=== PATIENT | female | born 1965 | race Caucasian/White ===

== ENCOUNTER 2022-12-10 16:58 | Emergency (ER) | payer MEDICAID, OTHER ==
[~2022-12-10] VITALS: Ht 182.8 cm; Wt 58.9 kg
--- NOTE | 2022-12-10 17:23 | ED General ---
General Chief Complaint: Neurological Problems Stated Complaint: SEIZURE Nursing Triage Note: PT ARRIVED VIA [employer] [facility] WITH CC OF SEIZURE X3 TODAY. PT STATES THAT SHE HAS NOT TAKEN HER MEDICATION FOR 8 MONTHS AND HAS A NONVOLUNTARY SHAKE X1 YEAR. Source of Information: Patient, Family (daughter) Exam Limitations: No Limitations (ARIN STEELE MD) History of Present Illness Date Seen by Provider: Dec 10, 2022 Time Seen by Provider: 17:09 Initial Comments Patient is a 57-year-old female who presents to the emergency room by ambulance, chief complaint of "seizures" today. She had been at [facility] in [facility] for an initial intake appointment. She tells me that she has a history of mental health disorder/depression as well as seizures. She has been off of her medications for at least 8 months since she moved from [place]. Her daughter is with her and states that they have been trying to get records from [place] but have not been able to do that. Daughter relates that the patient had 3 seizures today. She has "staring spells" she also has seizures where she "pushes people away" seizures where she "grabs at things". Patient states she has "alltypes" of seizures. Daughter states that she has about 5 to 10 minutes of confusion after these episodes. No recent illnesses. The patient denies any fevers or chills. No productive cough. No shortness of breath. No nausea or vomiting. She has had normal appetite. She denies burning with urination or diarrhea. She does smoke cigarettes. She denies street drug use including marijuana but the daughter states that the patient has been around marijuana so it "may be in her system". Patient is demonstrating tremoring in her upper extremities and ataxic truncal movements. I asked the patient if she had a movement disorder and she states yes this is normal for her. She is able to hold still when I am looking in her ears and in her mouth and auscultating her lungs and heart. Timing/Duration: 24 Hours Associated Systoms: Denies Symptoms (ARIN STEELE MD) Allergies and Home Medications Patient Home Medication List Home Medication List Reviewed: Yes (ARIN STEELE MD) Review of Systems Review of Systems Constitutional: see HPI EENTM: no symptoms reported Respiratory: no symptoms reported Cardiovascular: no symptoms reported Gastrointestinal: no symptoms reported Genitourinary: no symptoms reported Musculoskeletal: no symptoms reported Skin: no symptoms reported Psychiatric/Neurological: Seizure, Tremors (ARIN STEELE MD) All Other Systems Reviewed Negative Unless Noted: Yes (ARIN STEELE MD) Past Grefhzh-[id number]-Duuddm Hx Patient Social History Tobacco Use?: Yes Tobacco type used: Cigarettes Substance use?: Yes Substance type: Marijuana Alcohol Use?: No (ARIN STEELE MD) Physical Exam Vital Signs Vital Signs - First Documented 12/10/22 17:06 Pulse 85 B/P (MAP) 142/45 (77) Pulse Ox 98 O2 Delivery Room Air (SHANTAL ESPITIA DO) Vital Signs Capillary Refill : (ARIN STEELE MD) Height, Weight, BMI Height: '" Weight: lbs. oz. kg; 17.00 BMI Method: General Appearance: No Apparent Distress, Thin Eyes: Bilateral Eye Normal Inspection, Bilateral Eye PERRL, Bilateral Eye EOMI HEENT: PERRL/EOMI, TMs Normal, Normal ENT Inspection, Pharynx Normal Neck: Full Range of Motion Respiratory: Lungs Clear, Normal Breath Sounds, No Accessory Muscle Use, No Respiratory Distress Cardiovascular: Regular Rate, Rhythm, Normal Peripheral Pulses Gastrointestinal: Non Tender, Soft Back: Normal Inspection Extremity: Normal Inspection, Normal Range of Motion, No Pedal Edema Neurologic/Psychiatric: Alert, Oriented x3, No Motor/Sensory Deficits, Normal Mood/Affect, banking center manager II-XII Norm as Tested, Other (Patient demonstrates rhythmic tremors of the bilateral UE. She has a truncal sway. She is able to stop tremoring with examination. Her movements almost appear dystonic/similar to a tardive dyskinesia (she does have a history of being on psych meds)) Skin: Normal Color, Warm/Dry (ARIN STEELE MD) Progress/Results/Core Measures Suspected Sepsis SIRS Temperature: Pulse: 85 Respiratory Rate: Blood Pressure 142 /45 Mean: 77 (ARIN STEELE MD) Results/Orders Lab Results Laboratory Tests Test 12/10/22 17:37 12/10/22 17:43 Range/Units White Blood Count 6.9 4.3-11.0 10^3/uL Red Blood Count 4.46 3.80-5.11 10^6/uL Hemoglobin 14.1 11.5-16.0 g/dL Hematocrit 42 35-52 % Mean Corpuscular Volume 95 80-99 fL Mean Corpuscular Hemoglobin 32 25-34 pg Mean Corpuscular Hemoglobin Concent 33 32-36 g/dL Red Cell Distribution Width 13.6 10.0-14.5 % Platelet Count 234 130-400 10^3/uL Mean Platelet Volume 9.7 9.0-12.2 fL Immature Granulocyte % (Auto) 0 % Neutrophils (%) (Auto) 56 42-75 % Lymphocytes (%) (Auto) 33 12-44 % Monocytes (%) (Auto) 8 0-12 % Eosinophils (%) (Auto) 2 0-10 % Basophils (%) (Auto) 1 0-10 % Neutrophils # (Auto) 3.9 1.8-7.8 10^3/uL Lymphocytes # (Auto) 2.3 1.0-4.0 10^3/uL Monocytes # (Auto) 0.6 0.0-1.0 10^3/uL Eosinophils # (Auto) 0.1 0.0-0.3 10^3/uL Basophils # (Auto) 0.1 0.0-0.1 10^3/uL Immature Granulocyte # (Auto) 0.0 0.0-0.1 10^3/uL Sodium Level 140 135-145 MMOL/L Potassium Level 3.6 3.6-5.0 MMOL/L Chloride Level 108 H 98-107 MMOL/L Carbon Dioxide Level 21 21-32 MMOL/L Anion Gap 11 5-14 MMOL/L Blood Urea Nitrogen 9 7-18 MG/DL Creatinine 0.77 0.60-1.30 MG/DL Estimat Glomerular Filtration Rate 91 BUN/Creatinine Ratio 12 Glucose Level 89 70-105 MG/DL Calcium Level 9.4 8.5-10.1 MG/DL Corrected Calcium 9.1 8.5-10.1 MG/DL Total Bilirubin 0.7 0.1-1.0 MG/DL Aspartate Amino Transf (AST/SGOT) 18 5-34 U/L Alanine Aminotransferase (ALT/SGPT) 14 0-55 U/L Alkaline Phosphatase 87 40-136 U/L Total Protein 7.2 6.4-8.2 GM/DL Albumin 4.4 3.2-4.5 GM/DL Urine Color YELLOW Urine Clarity CLEAR Urine pH 6.0 5-9 Urine Specific [place] 1.020 1.016-1.022 Urine Protein NEGATIVE NEGATIVE Urine Glucose (UA) NEGATIVE NEGATIVE Urine Ketones NEGATIVE NEGATIVE Urine Nitrite NEGATIVE NEGATIVE Urine Bilirubin NEGATIVE NEGATIVE Urine Urobilinogen 0.2 < = 1.0 MG/DL Urine Leukocyte Esterase NEGATIVE NEGATIVE Urine RBC (Auto) TRACE-I H NEGATIVE Urine RBC 0-2 /HPF Urine WBC NONE /HPF Urine Squamous Epithelial Cells 2-5 /HPF Urine Crystals NONE /LPF Urine Bacteria TRACE /HPF Urine Casts NONE /LPF Urine Mucus SMALL H /LPF Urine Culture Indicated NO Urine Opiates Screen NEGATIVE NEGATIVE Urine Oxycodone Screen NEGATIVE NEGATIVE Urine Methadone Screen NEGATIVE NEGATIVE Urine Propoxyphene Screen NEGATIVE NEGATIVE Urine Barbiturates Screen NEGATIVE NEGATIVE Ur Tricyclic Antidepressants Screen NEGATIVE NEGATIVE Urine Phencyclidine Screen NEGATIVE NEGATIVE Urine Amphetamines Screen NEGATIVE NEGATIVE Urine Methamphetamines Screen NEGATIVE NEGATIVE Urine Benzodiazepines Screen NEGATIVE NEGATIVE Urine Cocaine Screen NEGATIVE NEGATIVE Urine Cannabinoids Screen POSITIVE H NEGATIVE (SHANTAL ESPITIA DO) Vital Signs/I&O 12/10/22 17:06 Pulse 85 B/P (MAP) 142/45 (77) Pulse Ox 98 O2 Delivery Room Air (SHANTAL ESPITIA DO) Vital Signs/I&O Capillary Refill : (ARIN STEELE MD) Blood Pressure Mean: 77 Departure Impression Primary Impression: Dystonic movements Additional Impression: Marijuana use Disposition: 01 HOME, SELF-CARE Condition: Stable Departure-Patient Inst. Decision time for Depature: 18:25 (SHANTAL ESPITIA DO) Patient Instructions: Dystonia Add. Discharge Instructions: FOLLOW UP WITH OF CHOICE FOR FURTHER CARE All discharge instructions reviewed with patient and/or family. Voiced u nderstanding. Work/School Note: Local [employer] ARIN STEELE MD Dec 10, 2022 17:23 SHANTAL ESPITIA DO Dec 10, 2022 18:29
[2022-12-10 17:45] LABS: BASOPHILS # (AUTO) 0.1 10^3/uL (0.0-0.1); BASOPHILS % (AUTO) 1 % (0-10); EOSINOPHILS # (AUTO) 0.1 10^3/uL (0.0-0.3); EOSINOPHILS % (AUTO) 2 % (0-10); HEMATOCRIT 42 % (35-52); HEMOGLOBIN 14.1 g/dL (11.5-16.0); LYMPHOCYTES # (AUTO) 2.3 10^3/uL (1.0-4.0); LYMPHOCYTES % (AUTO) 33 % (12-44); MEAN CORPUSCULAR HEMOGLOBIN 32 pg (25-34); MEAN CORPUSCULAR HGB CONC 33 g/dL (32-36); MEAN CORPUSCULAR VOLUME 95 fL (80-99); MEAN PLATELET VOLUME 9.7 fL (9.0-12.2); MONOCYTES # (AUTO) 0.6 10^3/uL (0.0-1.0); MONOCYTES % (AUTO) 8 % (0-12); NEUTROPHILS # (AUTO) 3.9 10^3/uL (1.8-7.8); NEUTROPHILS % (AUTO) 56 % (42-75); PLATELET COUNT 234 10^3/uL (130-400); WHITE BLOOD COUNT 6.9 10^3/uL (4.3-11.0)
[2022-12-10 18:00] LABS: ALBUMIN 4.4 GM/DL (3.2-4.5); POTASSIUM 3.6 MMOL/L (3.6-5.0)
[2022-12-10 18:02] LABS: CALCIUM 9.4 MG/DL (8.5-10.1)
[2022-12-10 18:03] LABS: TOTAL PROTEIN 7.2 GM/DL (6.4-8.2)
[2022-12-10 18:05] LABS: BILIRUBIN,TOTAL 0.7 MG/DL (0.1-1.0)
[2022-12-10 18:06] LABS: CREATININE SERUM 0.77 MG/DL (0.60-1.30)
[2022-12-10 18:07] LABS: BILIRUBIN,URINE NEGATIVE (NEGATIVE); CLARITY,URINE CLEAR; COLOR,URINE YELLOW; GLUCOSE, URINE (UA) NEGATIVE (NEGATIVE); KETONES,URINE NEGATIVE (NEGATIVE); LEUKOCYTE ESTERASE ,URINE NEGATIVE (NEGATIVE); NITRITE,URINE NEGATIVE (NEGATIVE); PROTEIN,URINE NEGATIVE (NEGATIVE)
[2022-12-10 18:22] LABS: AMPHETAMINE SCREEN, URINE NEGATIVE (NEGATIVE); BARBITURATE SCREEN URINE NEGATIVE (NEGATIVE); BENZODIAZEPINES SCREEN URINE NEGATIVE (NEGATIVE); CANNABINOID SCREEN, URINE POSITIVE (NEGATIVE); COCAINE SCREEN URINE NEGATIVE (NEGATIVE); METHADONE STAT NEGATIVE (NEGATIVE); OPIATE SCREEN URINE NEGATIVE (NEGATIVE); OXYCODONE STAT NEGATIVE (NEGATIVE); PROPOXYPHENE STAT NEGATIVE (NEGATIVE); TRICYCLIC ANTIDEPRESSANTS SCRE NEGATIVE (NEGATIVE)
[2022-12-10 18:24] LABS: BACTERIA,URINE TRACE /HPF; RBC,URINE 0-2 /HPF
[2022-12-10 18:36] VITALS: BP 140/80
== END 2022-12-10 18:36 | disposition home or self-care (01) ==
LOC: ER 17:00
DX: R25.8 Other abnormal involuntary movements (principal); F12.90 Cannabis use, unspecified, uncomplicated; G40.909 Epilepsy, unspecified, not intractable, without status epilepticus; T50.916A Underdosing of multiple unspecified drugs, medicaments and biological substances, initial encounter; F17.210 Nicotine dependence, cigarettes, uncomplicated; Z91.128 Patient's intentional underdosing of medication regimen for other reason
CPT/HCPCS: 36415; 80053; 80306; 81000; 85025